=== PATIENT | male | born 1930 | race Caucasian/White ===

== ENCOUNTER → 2016-05-13 | Outpatient (CLI) | payer MEDICARE | END | disposition home or self-care (01) | LOC: PCVCIMAG 08:19 | PROVIDERS: ATTEND Nuclear Medicine Nuclear Cardiology | DX: I73.9 Peripheral vascular disease, unspecified (principal); M79.605 Pain in left leg; M79.604 Pain in right leg; Z95.820 Peripheral vascular angioplasty status with implants and grafts | CPT/HCPCS: 93925; 93971; 93978 ==

== ENCOUNTER → 2016-05-16 | Outpatient (CLI) | payer MEDICARE | END | disposition home or self-care (01) | LOC: PCVCCLINIC 14:59 | PROVIDERS: ATTEND Nuclear Medicine Nuclear Cardiology | DX: I87.2 Venous insufficiency (chronic) (peripheral) (principal); I73.9 Peripheral vascular disease, unspecified; I25.10 Atherosclerotic heart disease of native coronary artery without angina pectoris; I77.9 Disorder of arteries and arterioles, unspecified; I35.0 Nonrheumatic aortic (valve) stenosis; I70.1 Atherosclerosis of renal artery; I10 Essential (primary) hypertension; E78.00 Pure hypercholesterolemia, unspecified; I89.0 Lymphedema, not elsewhere classified | CPT/HCPCS: G0463 ==

== ENCOUNTER → 2016-06-17 | Outpatient (CLI) | payer MEDICARE | END | disposition home or self-care (01) | LOC: PCVCCLINIC 12:09 | PROVIDERS: ATTEND Internal Medicine Cardiovascular Disease | DX: I25.10 Atherosclerotic heart disease of native coronary artery without angina pectoris (principal); I45.10 Unspecified right bundle-branch block; I73.9 Peripheral vascular disease, unspecified; I77.9 Disorder of arteries and arterioles, unspecified; I48.91 Unspecified atrial fibrillation; I70.1 Atherosclerosis of renal artery; I35.0 Nonrheumatic aortic (valve) stenosis; I10 Essential (primary) hypertension; E78.00 Pure hypercholesterolemia, unspecified; I87.2 Venous insufficiency (chronic) (peripheral); R01.1 Cardiac murmur, unspecified | CPT/HCPCS: 93005; G0463 ==

== ENCOUNTER → 2016-11-15 | Outpatient (CLI) | payer MEDICARE ==
--- NOTE | 2016-11-15 13:47 | PCVCIMAG ---
EXAM: BILATERAL CAROTID DUPLEX INDICATION: Carotid Occlusive Disease. Previous right carotid stent. FINDINGS: Doppler Measurements (centimeters per second): RIGHT: Peak CCA-47, Peak ECA-412, Diastolic ICA-39, Peak ICA-152, ICA/CCA Ratio-3.2. LEFT: Peak CCA-73, Peak ECA-86, Diastolic ICA-27, Peak ICA-119, ICA/CCA Ratio-1.6. RIGHT CAROTID: The carotid bulb has moderate plaque. The proximal internal carotid artery shows 50-60% stenosis within the midportion of the prior stent. The common carotid artery shows no significant stenosis. The external carotid artery shows 90% stenosis. LEFT CAROTID: The carotid bulb has moderate plaque. The proximal internal carotid artery shows <40% stenosis. The common carotid artery shows no significant stenosis. The external carotid artery shows no significant stenosis. Antegrade flow in both vertebral arteries. IMPRESSION: 50-60% stenosis of the right internal carotid artery within prior stent. <40% stenosis of the left internal carotid artery with moderate plaque. No change since August 2015. LOC:[id number]
--- NOTE | 2016-11-15 14:30 | PCVCIMAG ---
EXAM: AORTOILIAC DUPLEX INDICATION: Peripheral arterial disease FINDINGS: AORTA: Suprarenal aorta measures maximum diameter of 2.2 cm. There is not a fusiform infrarenal aortic aneurysm. The infrarenal aorta measures maximum diameter of 1.6 cm. No aortic stenosis. RIGHT COMMON ILIAC ARTERY: Maximum diameter is 1.0 cm. Mild stenosis. RIGHT EXTERNAL ILIAC ARTERY: No significant stenosis. LEFT COMMON ILIAC ARTERY: Maximum diameter is 0.9 cm. Mild stenosis. LEFT EXTERNAL ILIAC ARTERY: No significant stenosis. IMPRESSION: No abdominal aortic aneurysm. No high-grade aortoiliac stenosis seen. Mild restenosis right and left common iliac artery is not felt to be flow-limiting. LOC:[id number]
--- NOTE | 2016-11-15 15:08 | PCVCIMAG ---
EXAM: BILATERAL LOWER EXTREMITY ARTERIAL DUPLEX INDICATION: Peripheral Arterial Disease. Leg pain. FINDINGS: Right Leg: Satisfactory arterial waveforms in the common femoral and profunda femoral artery. 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 Previous femoral-popliteal artery bypass graft maintaining satisfactory patency including previous sites of intervention proximally. Mid and lower popliteal artery is patent. Unchanged occlusion throughout the posterior tibial artery. The peroneal artery and anterior tibial artery show adequate patency. Left Leg: Satisfactory arterial waveforms in the common femoral and profunda femoral artery and throughout the superficial femoral artery and popliteal artery. Previous stent distal superficial femoral artery maintaining good patency. Chronic occlusion is unchanged in the anterior and posterior tibial arteries with the peroneal artery being patent. IMPRESSION: Right femoral-popliteal artery bypass graft maintaining satisfactory patency. Previous sites of intervention in the proximal portion of the graft and the [place] right popliteal artery remain patent. No flow-limiting stenosis in the left superficial femoral artery or popliteal artery with previous left SFA stent maintaining satisfactory patency. Unchanged occlusion of the right posterior tibial artery and the left anterior and posterior tibial arteries. LOC:[id number]
--- NOTE | 2016-11-15 17:55 | PCVCIMAG ---
APPROVED REPORT Study performed: 11/15/2016 15:37:48 EXAM: Comprehensive 2D, Doppler, and color-flow Echocardiogram Patient Location: Echo lab Status: routine Other Information Study Quality: Technically Difficult Indications Aortic Valve Disease CAD S/P CABG 2D Dimensions LVEF(%): 61.38 (>50%) IVSd: 11.19 (7-11mm)LVOT Diam: 20.62 (18-24mm) LVDd: 36.63 mm PWd: 6.21 (7-11mm) LVDs: 24.81 (25-40mm) Left Atrium: 21.81 (27-40mm) Aortic Root: 30.49 mm LV Single Plane 4CH: 59.92 % LV Single Plane 2CH: 52.40 %Estrada's LVEF: 56.16 % Biplane EF: 60.0 % Aortic Valve AoV Peak Capo.: 3.00 m/s AO Peak Gr.: 37.31 mmHgLVOT Max P.72 mmHg AO Mean Gr.: 22.25 mmHgLVOT Mean P.88 mmHg AO V2 Mean: 2.23 m/sLVOT Max V: 0.66 m/s AO V2 VTI: 75.94 cm YANI (VTI): 0.83 [id number] V1 VTI: 18.97 cm YANI Vmax: 0.73 cm2 AI Vmax: 2.91 m/s AI [place]: 0.99 m/s2 AI PHT: 849.68 ms Mitral Valve E/A Ratio: 1.0 MV Decel. Time: 257.48 ms MV E Max Capo.: 0.79 m/s MV A Capo.: 0.83 m/s MV PHT: 74.67 ms IVRT: 79.58 ms Pulmonary Valve PV Peak Capo.: 0.84 m/sPV Peak Gr.: 2.80 mmHg Pulmonary Vein P Vein S: 0.50 m/sP Vein A: 0.22 m/s P Vein D: 0.42 m/sP Vein A Dur.: 72.7 msec P Vein S/D Ratio: 1.19 Tricuspid Valve TR Peak Capo.: 2.69 m/s TR Peak Gr.: 29.05 mmHg TV Vmax: 0.60 m/sPA Pressure: 36.00 mmHg Left Ventricle The left ventricle is normal size. There is normal LV segmental wall motion. There is normal left ventricular wall thickness. Left ventricular systolic function is normal. The left ventricular ejection fraction is within the normal range. LVEF is 50-55%. The left ventricular diastolic function is normal. Right Ventricle The right ventricle is normal size. The right ventricular systolic function is normal. Atria The left atrium size is normal. The interatrial septum is intact with no evidence for an atrial septal defect. The right atrium size is normal. Aortic Valve Aortic valve is probably trileaflet. Aortic valve leaflets are severely sclerotic withseverely decreased opening. Mild aortic regurgitation. Severe aortic stenosis. Highest mean aortic valve gradient is 29mmHg. Peak aortic valve gradient is 43 Calculated YANI by the continuity equation is 0.8cm2.mmHg. Mitral Valve Moderate mitral annular calcification. There is no mitral valve regurgitation noted. No evidence of mitral valve stenosis. Tricuspid Valve The tricuspid valve is normal in structure. Mild tricuspid regurgitation with a PA pressure of 36mmHg. Pulmonic Valve The pulmonary valve is normal in structure. Trace pulmonic regurgitation. Great Vessels The aortic root is normal in size. IVC is normal in size and collapses with >50% inspiration Pericardium There is no pericardial effusion. <Conclusion> The left ventricle is normal size. Left ventricular systolic function is normal. The left ventricular ejection fraction is within the normal range. LVEF is 50-55%. The right ventricle is normal size. The left atrium size is normal. Aortic valve is probably trileaflet. Aortic valve leaflets are severely sclerotic withseverely decreased opening. Mild aortic regurgitation. Severe aortic stenosis. Highest mean aortic valve gradient is 29mmHg. Peak aortic valve gradient is 43 Calculated YANI by the continuity equation is 0.8cm2.mmHg. Mild tricuspid regurgitation with a PA pressure of 36mmHg. There is no mitral valve regurgitation noted. There is no pericardial effusion.
== END | disposition home or self-care (01) ==
LOC: PCVCIMAG 13:00
PROVIDERS: ATTEND Nuclear Medicine Nuclear Cardiology
DX: I65.23 Occlusion and stenosis of bilateral carotid arteries (principal); I70.202 Unspecified atherosclerosis of native arteries of extremities, left leg; I70.291 Other atherosclerosis of native arteries of extremities, right leg; I35.1 Nonrheumatic aortic (valve) insufficiency; I07.1 Rheumatic tricuspid insufficiency; I37.1 Nonrheumatic pulmonary valve insufficiency; I25.10 Atherosclerotic heart disease of native coronary artery without angina pectoris; I45.10 Unspecified right bundle-branch block; E11.59 Type 2 diabetes mellitus with other circulatory complications; I48.2 Chronic atrial fibrillation; I87.2 Venous insufficiency (chronic) (peripheral); E78.00 Pure hypercholesterolemia, unspecified; Z85.51 Personal history of malignant neoplasm of bladder; Z95.1 Presence of aortocoronary bypass graft; Z95.828 Presence of other vascular implants and grafts; Z85.46 Personal history of malignant neoplasm of prostate; Z96.642 Presence of left artificial hip joint; Z87.891 Personal history of nicotine dependence; Z79.84 Long term (current) use of oral hypoglycemic drugs; Z79.82 Long term (current) use of aspirin
CPT/HCPCS: 93306; 93880; 93925; 93978; G0463

== ENCOUNTER → 2017-06-09 | Outpatient (CLI) | payer MEDICARE | END | disposition home or self-care (01) | LOC: PCVCIMAG 08:23 | DX: I73.9 Peripheral vascular disease, unspecified (principal); I25.10 Atherosclerotic heart disease of native coronary artery without angina pectoris; I10 Essential (primary) hypertension; I48.91 Unspecified atrial fibrillation; E78.00 Pure hypercholesterolemia, unspecified; I77.9 Disorder of arteries and arterioles, unspecified; I70.1 Atherosclerosis of renal artery; I35.0 Nonrheumatic aortic (valve) stenosis; I87.2 Venous insufficiency (chronic) (peripheral); E11.9 Type 2 diabetes mellitus without complications; Z95.1 Presence of aortocoronary bypass graft; Z87.891 Personal history of nicotine dependence; Z79.899 Other long term (current) drug therapy; Z79.82 Long term (current) use of aspirin | CPT/HCPCS: 93005; 93925; G0463 ==

== ENCOUNTER → 2017-12-12 | Outpatient (CLI) | payer MEDICARE ==
--- NOTE | 2017-12-12 08:47 | PCVCIMAG ---
EXAM: BILATERAL CAROTID DUPLEX INDICATION: Carotid Occlusive Disease. Previous right carotid stent. FINDINGS: Doppler Measurements (centimeters per second): RIGHT: Peak CCA-xx, Peak ECA-xx, Diastolic ICA-xx, Peak ICA-xx, ICA/CCA Ratio-xx. LEFT: Peak CCA-xx, Peak ECA-xx, Diastolic ICA-xx, Peak ICA-xx, ICA/CCA Ratio-xx. RIGHT CAROTID: Previous stent upper common carotid artery and extending into the internal carotid artery shows satisfactory color flow throughout. The proximal internal carotid artery shows 50% stenosis. The common carotid artery shows no significant stenosis. The external carotid artery shows 90% stenosis. LEFT CAROTID: The carotid bulb has moderate plaque. The proximal internal carotid artery shows <40% stenosis. The common carotid artery shows no significant stenosis. The external carotid artery shows no significant stenosis. Antegrade flow in both vertebral arteries. IMPRESSION: 50% stenosis right internal carotid artery within prior stent. <40% stenosis of the left internal carotid artery with moderate plaque. No change since October 2016 study. LOC:[id number]
--- NOTE | 2017-12-12 12:44 | PCVCIMAG ---
APPROVED REPORT Study performed: 12/12/2017 09:37:42 EXAM: Comprehensive 2D, Doppler, and color-flow Echocardiogram Patient Location: Echo lab Status: routine BSA: 2.00 HR: 59 bpmBP: 134/60 mmHg Rhythm: RBBB Other Information Study Quality: Adequate Indications CAD Aortic stenosis, hx CABG 2D Dimensions LVEF(%): 45.27 (>50%) IVSd: 10.33 (7-11mm)LVOT Diam: 21.31 (18-24mm) LVDd: 40.31 mm PWd: 10.47 (7-11mm) LVDs: 31.37 (25-40mm) Left Atrium: 38.61 (27-40mm) Aortic Root: 32.87 mm LV Single Plane 4CH: 57.00 % LV Single Plane 2CH: 56.65 %Estrada's LVEF: 56.83 % Biplane EF: 55.7 % Volumes Left Atrial Volume (Systole) Single Plane 4CH: 50.78 mLSingle Plane 2CH: 73.84 mL LA ESV Index: 34.00 mL/m2 Aortic Valve AoV Peak Capo.: 3.70 m/s AO Peak Gr.: 54.82 mmHgLVOT Max P.50 mmHg AO Mean Gr.: 26.62 mmHgLVOT Mean P.20 mmHg AO V2 Mean: 2.34 m/sLVOT Max V: 0.79 m/s AO V2 VTI: 94.93 cm YANI (VTI): 0.81 [id number] V1 VTI: 21.61 cm YANI Vmax: 0.76 cm2 AI Vmax: 3.84 m/s AI [place]: 3.07 m/s2 AI PHT: 362.95 ms Mitral Valve E/A Ratio: 0.8 MV Decel. Time: 298.26 ms MV E Max Capo.: 0.63 m/s MV A Capo.: 0.75 m/s MV PHT: 86.50 ms IVRT: 121.11 ms Pulmonary Valve PV Peak Capo.: 0.89 m/sPV Peak Gr.: 3.20 mmHg Pulmonary Vein P Vein S: 0.47 m/sP Vein A: 0.24 m/s P Vein D: 0.70 m/sP Vein A Dur.: 124.6 msec P Vein S/D Ratio: 0.67 Tricuspid Valve TR Peak Capo.: 2.90 m/s TR Peak Gr.: 33.63 mmHg Left Ventricle The left ventricle is normal size. There is normal LV segmental wall motion. There is normal left ventricular wall thickness. Left ventricular systolic function is normal. The left ventricular ejection fraction is within the normal range. LVEF is 55%. Grade I - abnormal relaxation pattern. Right Ventricle The right ventricle is normal size. The right ventricular systolic function is normal. Atria The left atrium size is normal. The right atrium size is normal. Aortic Valve The aortic valve is severely calcified. Moderate aortic regurgitation. There is severe valvular aortic stenosis. Calculated aortic valve area is .8 cm2 with maximum pressure gradient of 55 mmHg and mean pressure gradient of 27 mmHg. Mitral Valve Moderately calcified leaflets without stenosis. Mild mitral regurgitation. No evidence of mitral valve stenosis. Tricuspid Valve The tricuspid valve is normal in structure. Mild to moderate tricuspid regurgitation with PAP of 41 mmHg. Pulmonic Valve The pulmonary valve is normal in structure. There is no pulmonic valvular regurgitation. Great Vessels The aortic root is normal in size. IVC is normal in size and collapses with >50% inspiration Pericardium There is no pericardial effusion. There is no pleural effusion. <Conclusion> The left ventricle is normal size. LVEF is 55%. Grade I - abnormal relaxation pattern. The right ventricle is normal size. The left atrium size is normal. The aortic valve is severely calcified. Moderate aortic regurgitation. There is severe valvular aortic stenosis. Calculated aortic valve area is .8 cm2 with maximum pressure gradient of 55 mmHg and mean pressure gradient of 27 mmHg. Moderately calcified leaflets without stenosis. Mild mitral regurgitation. Mild to moderate tricuspid regurgitation with PAP of 41 mmHg. The aortic root is normal in size. There is no pericardial effusion. The left ventricle is normal size. Left ventricular systolic function is normal. The left ventricular ejection fraction is within the normal range. LVEF is 55%.
--- NOTE | 2017-12-12 17:52 | PCVCIMAG ---
EXAM: BILATERAL LOWER EXTREMITY ARTERIAL DUPLEX INDICATION: Peripheral Arterial Disease. Leg pain. FINDINGS: Right Le-60% stenosis mid/distal common femoral artery. 90% stenosis origin profunda femoral artery. 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 Postsurgical changes of femoral to popliteal artery bypass with satisfactory patency throughout. The posterior tibial arteries occluded. The anterior tibial and peroneal arteries are patent. Left Leg: Common femoral and [place] femoral arteries are patent. Superficial femoral artery and popliteal artery are patent. Previous stent distal superficial femoral artery and upper popliteal artery are patent. The anterior tibial and posterior tibial arteries are occluded. The peroneal artery is patent throughout. IMPRESSION: Right femoral-popliteal artery bypass graft maintaining satisfactory patency. Unchanged 50-60% stenosis [place] mid/lower right common femoral artery. Unchanged occlusion right posterior tibial artery. Previous left superficial femoral artery stent maintaining satisfactory patency. Unchanged occlusion left anterior and posterior tibial arteries. LOC:[place] [id number]
== END | disposition home or self-care (01) ==
LOC: PCVCIMAG 12:14
PROVIDERS: ATTEND Internal Medicine Cardiovascular Disease
DX: I25.10 Atherosclerotic heart disease of native coronary artery without angina pectoris (principal); I48.91 Unspecified atrial fibrillation; I08.3 Combined rheumatic disorders of mitral, aortic and tricuspid valves; I10 Essential (primary) hypertension; E78.00 Pure hypercholesterolemia, unspecified; I73.9 Peripheral vascular disease, unspecified; I45.10 Unspecified right bundle-branch block; I65.23 Occlusion and stenosis of bilateral carotid arteries; Z95.1 Presence of aortocoronary bypass graft; Z87.891 Personal history of nicotine dependence; Z79.82 Long term (current) use of aspirin; Z79.84 Long term (current) use of oral hypoglycemic drugs
CPT/HCPCS: 80061; 93005; 93306; 93880; 93925; G0463

== ENCOUNTER → 2017-12-18 | Outpatient (CLI) | payer MEDICARE ==
[~2017-12-18] MED LIST: REGADENOSON 0.4 MG/5 ML DISP.SYRIN. IV ONE
--- NOTE | 2017-12-19 11:53 | PCVCIMAG ---
APPROVED REPORT Imaging Protocol: Rest Tc-99m/Stress Tc-99m 1 day Study performed: 12/18/2017 10:13:15 Indication: Abnormal EKG, Atrial Fibrillation Patient Location: Out-Patient Stress Nurse: Angeles Mark RN AL Tech:Katy Lingleny [facility] Ht: 5 ft 8 in Wt: 185 lbs BSA: 1.98 m2 HR: 60 bpm BP: 200/78 mmHg BMI: 28.1 Rhythm: SR, RBBB, T Wave Abn Medical History Medical History: HTN, Hyperlipidemia, PVD, Former Smoker, Age Allergies: No known drug allergies Previous Cardiac Procedures: CABG Pretest Chest Pain Characteristics: No chest pain Resting Data Rest SPECT myocardial perfusion imaging was performed in supine position 45 minutes following the intravenous injection of 10.6 mCi of Tc-99m Sestamibi. Time of rest injection: 929 Date: 12/18/2017 Administration Route: IV Administration Site: Right AC Pharmacologic Stress Pharmacologic stress test was performed by injecting Regadenoson 0.4 mg IV push over 10-15 seconds immediately followed by the intravenous injection of 33.5 mCi of Tc-99m Sestamibi. Time of stress injection: 1045 Administration Route: IV Administration Site: Right AC Gated Stress SPECT was performed 45 minutes after stress injection. The images were gated to evaluate regional wall motion and calculate left ventricular ejection fraction. Comments PRIOR NUCLEAR STRESS TEST 05/2013: Perfusion Imaging: Moderate sized area of reversible ischemia involving the mid/apical anterior and lateral left ventricle consistent with a left anterior descending and circumflex distribution. Visually there is post stress left ventricular dilatation which can be seen with multivessel disease. Normal left ventricular function with no regional wall motion abnormalities. Stress Test Details Stress Test: Pharmacologic stress testing performed using 0.4 mg of regadenoson per 5 mL given IV over 10 seconds. Reason for pharmacologic stress test: physical limitation. HRMax Heart Rate (APMHR): 132 bpm Resting HR: 60 bpmTarget HR (85% APMHR): 112 bpm Max HR Achieved: 80 bpm % of APMHR: 60 Recovery HR: 66 bpm BP Resting BP: 200/78 mmHg Recovery BP: 165/70 mmHg ECG Resting ECG: Sinus Rhythm, RBBB Stress ECG: Sinus Rhythm, RBBB Clinical Reason for Termination: Completed protocol Stress Symptoms: Chest pressure Exercise duration: 0 min 55 sec Symptoms resolved during recovery. Stress ECG Conclusion ECG: Non-ischemic Study Quality Study: Good Study Data Post stress, the left ventricular ejection was 69%.. SSS: 10 SRS: 5 SDS: 5 TID = 1.07. Perfusion Medium sized area of moderate reversible ischemia involving the mid/apical anterolateral/lateral left ventricle consistent with a left anterior descending and circumflex distributions. Wall Motion Normal left ventricular size and function with no regional wall motion abnormalities. Nuclear Conclusion Medium sized area of moderate reversible ischemia involving the mid/apical anterolateral/lateral left ventricle consistent with a left anterior descending and circumflex distributions. Normal left ventricular size and function with no regional wall motion abnormalities. By report no change since 2013. Interpreted by: Eric Pagan MD Electronically Approved: 12/18/2017 14:15:22 <Conclusion> ECG: Non-ischemic
== END | disposition home or self-care (01) ==
LOC: PCVCIMAG 13:02
PROVIDERS: ATTEND Internal Medicine Cardiovascular Disease
DX: I48.91 Unspecified atrial fibrillation (principal); R79.81 Abnormal blood-gas level; I73.9 Peripheral vascular disease, unspecified; E78.5 Hyperlipidemia, unspecified; Z87.891 Personal history of nicotine dependence; Z95.1 Presence of aortocoronary bypass graft
CPT/HCPCS: 78452; 93017; A9500; J2785

== ENCOUNTER → 2018-09-11 | Outpatient (CLI) | payer MEDICARE ==
--- NOTE | 2018-09-11 11:53 | PCVCIMAG ---
APPROVED REPORT Study performed: 09/11/2018 09:58:29 EXAM: Comprehensive 2D, Doppler, and color-flow Echocardiogram Patient Location: Echo lab Status: routine BSA: 2.02 HR: 51 bpmBP: 140/60 mmHg Rhythm: NSR Other Information Study Quality: Good Risk Factors: Cardiac Risk Factors: HTN, Hyperlipidemia Indications Atrial Fibrillation Aortic Stenosis, CABG 2D Dimensions IVSd: 15.69 (7-11mm)LVOT Diam: 21.39 (18-24mm) LVDd: 36.18 mm PWd: 15.69 (7-11mm)Ascending Ao: 32.44 (22-36mm) LVDs: 30.72 (25-40mm) Left Atrium: 38.13 (27-40mm) Aortic Root: 32.88 mm LV Single Plane 4CH: 63.36 % LV Single Plane 2CH: 55.12 % Biplane EF: 60.4 % Volumes Left Atrial Volume (Systole) Single Plane 4CH: 53.92 mLSingle Plane 2CH: 59.30 mL LA ESV Index: 28.00 mL/m2 Aortic Valve AoV Peak Capo.: 3.87 m/s AO Peak Gr.: 59.86 mmHgLVOT Max P.12 mmHg AO Mean Gr.: 31.03 mmHgLVOT Mean P.43 mmHg AO V2 Mean: 2.58 m/sLVOT Max V: 0.88 m/s AO V2 VTI: 101.34 cmLVOT Mean V: 0.55 m/s YANI (VTI): 0.75 [id number] V1 VTI: 21.09 cm YANI Vmax: 0.82 cm2 SV (LVOT): 75.79 mL Mitral Valve E/A Ratio: 1.5 MV Decel. Time: 218.17 ms MV E Max Capo.: 1.01 m/s MV A Capo.: 0.68 m/s IVRT: 86.51 ms TDI E/Lateral E': 101.00E/Medial E': 16.83 Medial E' Capo.: 0.06 m/s Lateral E' Capo.: 0.01 m/s Pulmonary Valve PV Peak Gr.: 1.97 mmHg Pulmonary Vein P Vein S: 0.44 m/sP Vein A: 0.84 m/s P Vein D: 0.84 m/s P Vein S/D Ratio: 0.52 Tricuspid Valve TR Peak Capo.: 3.10 m/s TR Peak Gr.: 38.37 mmHg Left Ventricle The left ventricle is normal size. There is normal LV segmental wall motion. Mild concentric left ventricular hypertrophy. Left ventricular systolic function is normal. The left ventricular ejection fraction is within the normal range. LVEF is 55-60%. Grade I - abnormal relaxation pattern. Right Ventricle The right ventricle is normal size. The right ventricular systolic function is normal. Atria The left atrium size is normal. The right atrium size is normal. Aortic Valve Aortic valve leaflets are moderately thickened. Trace aortic regurgitation. Peak aortic gradient is 60mmHg. Mean gradient of 32mmHg. Calculated aortic valve area is 0.8cm2. Mitral Valve Mitral valve leaflets are thickened. Mild mitral annular calcification. Trace mitral regurgitation. No evidence of mitral valve stenosis. Tricuspid Valve The tricuspid valve is normal in structure. Trace to mild tricuspid regurgitation. Pulmonary artery pressure is 46mmHg. Pulmonic Valve The pulmonary valve is normal in structure. There is no pulmonic valvular regurgitation. Great Vessels The aortic root is normal in size. IVC is normal in size and collapses >50% with inspiration. Pericardium There is no pericardial effusion. <Conclusion> The left ventricle is normal size. Mild concentric left ventricular hypertrophy. LVEF is 55-60%. Grade I - abnormal relaxation pattern. The right ventricle is normal size. The left atrium size is normal. Aortic valve leaflets are moderately thickened. Trace aortic regurgitation. Peak aortic gradient is 60mmHg. Mean gradient of 32mmHg. Calculated aortic valve area is 0.8cm2. Mitral valve leaflets are thickened. Mild mitral annular calcification. Trace mitral regurgitation. The aortic root is normal in size. There is no pericardial effusion.
--- NOTE | 2018-09-11 17:16 | PCVCIMAG ---
EXAM: LEFT LOWER EXTREMITY ARTERIAL DUPLEX INDICATION: Peripheral Arterial Disease. Leg pain. FINDINGS: Left Leg: Common femoral profunda femoral arteries are patent. Superficial femoral artery and popliteal artery are patent. Previous stent distal superficial femoral artery maintaining satisfactory patency. Unchanged occlusion of the anterior and posterior tibial arteries. Peroneal artery is patent. IMPRESSION: Previous left superficial femoral artery stent maintaining satisfactory patency. Unchanged occlusion of the left anterior and posterior tibial arteries. LOC:[place] [id number]
== END | disposition home or self-care (01) ==
LOC: PCVCIMAG 09:48
PROVIDERS: ATTEND Internal Medicine Cardiovascular Disease
DX: I48.91 Unspecified atrial fibrillation (principal); I34.8 Other nonrheumatic mitral valve disorders; I11.9 Hypertensive heart disease without heart failure; I25.10 Atherosclerotic heart disease of native coronary artery without angina pectoris; I10 Essential (primary) hypertension; E78.00 Pure hypercholesterolemia, unspecified; I70.218 Atherosclerosis of native arteries of extremities with intermittent claudication, other extremity; I65.21 Occlusion and stenosis of right carotid artery; E11.9 Type 2 diabetes mellitus without complications; Z79.82 Long term (current) use of aspirin; Z87.891 Personal history of nicotine dependence
CPT/HCPCS: 36415; 80061; 93005; 93306; 93926; G0463; 93925